=== PATIENT | male | born 1955 | race Two or more races ===

== ENCOUNTER 2023-04-19 12:00 | Emergency (ER) | payer OTHER ==
[~2023-04-19] VITALS: Ht 175.3 cm; Wt 86.2 kg
[2023-04-19] MEDS ORDERED: TOPROL XL50 M1 PO (13:11)
[2023-04-19] MEDS ORDERED: CRESTOR40 MG PO (13:12)
[2023-04-19] MEDS ORDERED: ATACAND16 MG PO (13:12)
[2023-04-19 15:22] LABS: HEMOGLOBIN 13.9 g/dL (13-16.00); MEAN CELL VOLUME 97.6 fL (80.0-100.00); MEAN CORPUSCULAR HGB CONC 34.8 g/dl (32.0-36.0); PLATELET COUNT 581 K/uL (150-450); RED CELL DISTRIBUTION WIDTH 13.6 % (11.5-14.5)
[2023-04-19 17:29] LABS: ALBUMIN 3.2 gm/dL (3.4-5.0); BILIRUBIN TOTAL 0.89 mg/dL (0.3-1.2); CALCIUM 9.5 mg/dL (8.5-10.1); CREATININE SERUM 2.05 mg/dL (0.70-1.30); GFR 32.45; GLOBULINA 4.3 G/DL (2.4-3.5); INR 1.43; PARTIAL THROMBOPLASTIN TIME 26.7 SECONDS (22.0-34.0); POTASSIUM 3.86 mEq/L (3.5-5.1); PROTHROMBIN TIME 14.6 SECONDS (9.0-11.5); TOTAL PROTEIN 7.5 gm/dL (6.4-8.2)
== END 2023-04-19 17:37 | disposition designated cancer center or children's hospital (05) ==
LOC: ER 12:01
PROVIDERS: General Practice
DX: I21.9 Acute myocardial infarction, unspecified (principal); R07.89 Other chest pain; Z20.822 Contact with and (suspected) exposure to COVID-19
CPT/HCPCS: 36415; 71045; 93005; 93041; 96372; 99285; J1885; J3490

== ENCOUNTER 2024-03-24 13:09 | Outpatient (CLI) | payer OTHER ==
[~2024-03-24 13:09] MED LIST: ATACAND16 MG PO; CRESTOR40 MG PO; TOPROL XL50 M1 PO
== END 2024-03-24 13:14 | disposition home or self-care (01) ==
LOC: RAD 13:09
PROVIDERS: ATTEND Orthopaedic Surgery
DX: M79.641 Pain in right hand (principal); M25.531 Pain in right wrist